=== PATIENT | male | born 1970 | race Caucasian/White ===

== ENCOUNTER → 2017-01-27 | Outpatient (CLI) | payer BC, OTHER ==
[~2017-01-27] MED LIST: FLUT0.0529 NAE; GABA300C19 PO; GLUCPOW41 PO; HYDR-3983 PO; IBUP-1105 PO; IMT100 PO; LPT/20 PO; MISCCAP80 PO; NXM/40 PO; POLY335019 PO; TERA1CAP PO; VERA240C2 PO
--- NOTE | 2017-01-27 14:42 | DIAGNOSTIC IMAGING REPORT ---
BILATERAL KNEE RADIOGRAPHS CLINICAL HISTORY: Bilateral knee pain. COMPARISON: Knee radiographs June 15, 2015. FINDINGS: Right knee: Alignment of the right knee is anatomic. There is spurring of the patella at the insertion of the quadriceps. No fracture or suspicious lesion is identified. There is mild osteophytosis of the right knee. Joint spaces are preserved with exception of minimal narrowing within the lateral aspect of the patellofemoral compartment. Left knee: Mild lateral patellar tilt is noted with moderate narrowing of the lateral aspect of the patellofemoral compartment. Medial and lateral compartment joint spaces are preserved. There is no acute fracture or suspicious lesion. There is osteophytosis within the lateral compartment. IMPRESSION: Right knee: Mild arthritis of the right knee. No fracture. Left knee: Moderate patellofemoral compartment arthritis and mild lateral compartment arthritis. Electronically signed by: Phu Long M.D. 01/27/2017 2:40 PM Dictated Date/Time: 01/27/2017 2:37 PM
== END | disposition home or self-care (01) ==
LOC: C.RDSM 14:30
PROVIDERS: ATTEND Physical Medicine & Rehabilitation Sports Medicine
DX: M17.12 Unilateral primary osteoarthritis, left knee (principal); M25.561 Pain in right knee

== ENCOUNTER 2022-04-06 06:36 | Observation (INO) ==
--- NOTE | 2022-03-28 11:47 | PAT Medication Instructions ---
Medication Instructions Date of Service March 28, 2022 Home Medications Fish Oil, Flax Oil And Borag 800 mg PO QAM [facility] 1 tab PO QAM aluminum chloride 20 % topical solution (Drysol) 1 applic TOPICAL UD PRN mdxrpyu-hzbytnfgycguu-vlxroerz 250 mg-250 mg-65 mg tablet (Excedrin Migraine) 3 tab PO UD PRN atorvastatin 20 mg tablet 20 mg PO HS esomeprazole magnesium 40 mg capsule,delayed release 40 mg PO HS gabapentin 600 mg tablet 600 - 1,200 mg PO UD glucosamine sulfate 500 mg tablet (Glucosamine) 1,500 mg PO QAM hydrocodone 7.5 mg-acetaminophen 325 mg tablet 1 tab PO UD PRN lisinopril 20 mg tablet 20 mg PO HS meloxicam 7.5 mg tablet 7.5 mg PO HS multivitamin 1 cap PO QAM sildenafil 25 mg tablet (Viagra) 50 mg PO UD PRN sumatriptan succinate 100 mg tablet 100 mg PO UD PRN terazosin 1 mg capsule 1 mg PO HS turmeric 400 mg capsule 500 mg PO QAM ubrogepant 50 mg tablet (Ubrelvy) 50 mg PO UD PRN zolpidem 10 mg tablet 10 mg PO HS PRN Continue as directed gabapentin 600 mg tablet 600 - 1,200 mg PO UD ASK your surgeon for instructions ygjozxe-enuihadfiyyxw-znhtlprx 250 mg-250 mg-65 mg tablet (Excedrin Migraine) 3 tab PO UD PRN meloxicam 7.5 mg tablet 7.5 mg PO HS STOP taking 2 weeks before surgery Fish Oil, Flax Oil And Borag 800 mg PO QAM [facility] 1 tab PO QAM glucosamine sulfate 500 mg tablet (Glucosamine) 1,500 mg PO QAM turmeric 400 mg capsule 500 mg PO QAM STOP taking 24 hours before surgery aluminum chloride 20 % topical solution (Drysol) 1 applic TOPICAL UD PRN sildenafil 25 mg tablet (Viagra) 50 mg PO UD PRN DO NOT take the morning of surgery multivitamin 1 cap PO QAM Take morning of surgery With a small sip of water, OTHERWISE NOTHING TO EAT OR DRINK AFTER MIDNIGHT: hydrocodone 7.5 mg-acetaminophen 325 mg tablet 1 tab PO UD PRN(okay to take up to 4 hours prior to surgery if needed) sumatriptan succinate 100 mg tablet 100 mg PO UD PRN(if needed) ubrogepant 50 mg tablet (Ubrelvy) 50 mg PO UD PRN(if needed) Take evening before surgery atorvastatin 20 mg tablet 20 mg PO HS esomeprazole magnesium 40 mg capsule,delayed release 40 mg PO HS lisinopril 20 mg tablet 20 mg PO HS terazosin 1 mg capsule 1 mg PO HS zolpidem 10 mg tablet 10 mg PO HS PRN(if needed) Other Notes If you have any questions please call us at [phone] or [phone] or [phone] or [phone]
--- NOTE | 2022-03-29 15:25 | Anesthesiology Consultation ---
Date of Service March 29, 2022 Assessment & Plan (1) Encounter for pre-operative examination: COVID screening: Per assessment on 03/29: No known COVID-19 positive contacts or current COVID-19 related symptoms. Travel screen negative. Surgeon arranging preop COVID testing (JENNA Sandoval). Awaiting results. Chart Review Chart Review: Acceptable Risk for Surgery and Patient seen in Pre Admission Testing Teaching & Discussion Pre-Anesthesia Teaching/Discussion Notes: Instructed NPO after midnight before surgery,except medications with 15 cc of water. Medication instructions pro vided according to the PAT guidelines. History Surgery Operation Date: 04/06/22 08:40 Proposed Procedures p Left Total Knee Arthroplasty - Nikita Menendez MD Height/Weight Height: 6 ft Weight: 109.1 kg Allergies Allergy/AdvReac Type Severity Reaction Status Date / Time morphine AdvReac Unknown N/V Verified 03/29/22 13:26 Medications Home Medications Medication Instructions Recorded Confirmed Last Taken Fish Oil, Flax Oil And Borag 800 mg PO QAM 03/28/22 03/28/22 Unknown [place] 1 tab PO QAM 03/28/22 03/28/22 Unknown aluminum chloride 20 % topical 1 applic TOPICAL UD PRN 03/28/22 03/28/22 Unknown solution (Drysol) rxoqxeh-qyblqtimgydnd-gdomgrfz 250 3 tab PO UD PRN 03/28/22 03/28/22 Unknown mg-250 mg-65 mg tablet (Excedrin Migraine) atorvastatin 20 mg tablet 20 mg PO HS 03/28/22 03/28/22 Unknown esomeprazole magnesium 40 mg 40 mg PO HS 03/28/22 03/28/22 Unknown capsule,delayed release gabapentin 600 mg tablet 600 - 1,200 mg PO UD 03/28/22 03/28/22 Unknown glucosamine sulfate 500 mg tablet 1,500 mg PO QAM 03/28/22 03/28/22 Unknown (Glucosamine) hydrocodone 7.5 mg-acetaminophen 1 tab PO UD PRN 03/28/22 03/28/22 Unknown 325 mg tablet lisinopril 20 mg tablet 20 mg PO HS 03/28/22 03/28/22 Unknown meloxicam 7.5 mg tablet 7.5 mg PO HS 03/28/22 03/28/22 Unknown multivitamin 1 cap PO QAM 03/28/22 03/28/22 Unknown sildenafil 25 mg tablet (Viagra) 50 mg PO UD PRN 03/28/22 03/28/22 Unknown sumatriptan succinate 100 mg tablet 100 mg PO UD PRN 03/28/22 03/28/22 Unknown terazosin 1 mg capsule 1 mg PO HS 03/28/22 03/28/22 Unknown turmeric 400 mg capsule 500 mg PO QAM 03/28/22 03/28/22 Unknown ubrogepant 50 mg tablet (Ubrelvy) 50 mg PO UD PRN 03/28/22 03/28/22 Unknown zolpidem 10 mg tablet 10 mg PO HS PRN 03/28/22 03/28/22 Unknown Past Medical History Medical History Borderline high blood pressure Borderline high cholesterol Excessive sweating Armpit region History of COVID-19 03/2021 Migraines Chronic (typically 6 days/week) Obesity Exercise / Class Metabolic Activity II 4-5 Yardwork/Stairs/Walk up hill Past Surgical History Surgical History History of arthroscopy of left knee History of arthroscopy of right knee History of colonoscopy History of shoulder surgery left x3, right x2 History of shoulder surgery right for torn bicep tendon Past Anesthesia History No Hx of Anesthesia Complications (except PONV) and No Family Hx of Anesthesia Complications History of PONV No Hx of Motion Sickness and History of PONV Social History Smoking Status: Never smoker Do You Dip or Chew Tobacco: No (HX 7-8 YR AGO, NONE CURRENT) Hx Alcohol Use: Yes Alcohol type: beer alcohol intake frequency: other (6-10 beers/weekend) Hx Substance Use: No Review of Systems Patient denies chest pain, shortness of breath, dyspnea on exertion, fever, chills, cough, wheezing, palpitations. Physical Exam Vital Signs VITALS BP 156/95 (BP 120s/70s when checked last week) P 75 TEMP 98.2 SP02 96%RA RESP 16 PHYSICAL Full cervical extension range of motion. Full TMJ range of motion. TMD 3 finger breaths Mallampati Score 3 Dentition: intact Lungs: clear throughout to auscultation Cardiac: regular rate and rhythm, no murmurs noted Spine: normal Carotid arteries: negative bruit Extremities: no edema Lab Results Anesthesia Preop Results Results Anesthesia Widget: WBC 6.32 K/uL (4.8-10.8) 03/29/22 Hgb 14.5 g/dL (14.0-18.0) 03/29/22 Hct 42.9 % (42-52) 03/29/22 Plt 264 K/uL (130-400) 03/29/22 Na 139 mmol/L (136-145) 03/29/22 K 4.0 mmol/L (3.5-5.1) 03/29/22 Cl 103 mmol/L (98-107) 03/29/22 CO2 31 mmol/L (21-32) 03/29/22 BUN 14 mg/dl (6-23) 03/29/22 Creat 0.85 mg/dl (0.6-1.4) 03/29/22 Glucose Level 96 mg/dl (70-99(Fasting)) 03/29/22 PT 10.3 Seconds (9.0-12.0) 03/29/22 PTT 28.2 Seconds (21.0-31.0) 03/29/22 INR 1.0 (0.9-1.1) 03/29/22 Urine Color Yellow 03/29/22 Urine Appearance Clear (Clear) 03/29/22 Urine pH 6.5 (4.5-7.5) 03/29/22 Urine Specific [place] 1.019 (1.000-1.030) 03/29/22 Urine Protein Negative (Negative) 03/29/22 Urine Glucose (UA) Negative (Negative) 03/29/22 Urine Ketones Negative (Negative) 03/29/22 Urine Blood Negative (Negative) 03/29/22 Urine Nitrite Negative (Negative) 03/29/22 Urine Bilirubin Negative (Negative) 03/29/22 Urine Urobilinogen Negative (Negative) 03/29/22 Urine Leukocyte Esterase Negative (Negative) 03/29/22 Blood Type O Positive 03/29/22 Antibody Screen NEGATIVE 03/29/22 Testing Electrocardiogram Date: 03/29/22 NSR at 73bpm. unconfirmed report. Chest X-Ray Date: 03/29/22 FINDINGS: No lines and tubes are seen. The cardiomediastinal silhouette is normal. The lungs are clear. No evidence of pleural effusion or pneumothorax. Incidental note is made of tendon anchors in the left shoulder IMPRESSION: No acute chest disease.
--- NOTE | 2022-04-04 16:21 | History & Physical Report ---
Date of Service April 04, 2022 Assessment & Plan (1) Left knee DJD: Plan: Postoperative prescriptions for Percocet and Coumadin will be provided at discharge from the hospital. Anticipate discharge to home with home health services. Postop followup appointment has been made with me for 04/21 at 1:30 p.m. for staple removal. The PDMP was checked and there are no concerning findings. The patient is aware of the COVID-19 risks associated with surgery. He is currently asymptomatic of any COVID-19 symptoms. He will obtain nasal swab testing 2 days prior to surgery. The patient was sent to [facility] for preoperative lab work, EKG, and chest x-ray. He has already seen his PCP for medical clearance. He already has access to a cane. Prescription was provided for a rolling walker. History of Present Illness Chief Complaint: Left knee pain Primary Care Provider: Edilia Pineda MD This 52-year-old male presents for his preoperative history and physical. He is scheduled to undergo a left knee total knee arthroplasty on 04/06/2022. The patient has had bilateral knee pain, left greater than right, since 2020. He last received viscosupplementation injections in both knees in 09/2020. They helped for a few months, but did not provide the relief he was hoping for. He has been having increasing difficulty with his knees. The pain is worse with weightbearing. He is curtailing his activity based on his knee pain. He is having difficulty with ADLs. He is not exercising because the knees hurt. He notes he has had weight gain because of his inactivity. He denies any numbness or tingling. He elects to proceed with surgical intervention in the hopes of improving his mobility and comfort. Preoperative imaging has been obtained. Allergies Allergy/AdvReac Type Severity Reaction Status Date / Time morphine AdvReac Unknown N/V Verified 03/29/22 13:26 Home Medications Medication Instructions Recorded Confirmed Type Fish Oil, Flax Oil And Borag 800 mg PO QAM 03/28/22 03/28/22 History [place] 1 tab PO QAM 03/28/22 03/28/22 History aluminum chloride 20 % topical 1 applic TOPICAL UD PRN 03/28/22 03/28/22 History solution (Drysol) xqbkahs-spmerekjzkxqx-heaasadw 250 3 tab PO UD PRN 03/28/22 03/28/22 History mg-250 mg-65 mg tablet (Excedrin Migraine) atorvastatin 20 mg tablet 20 mg PO HS 03/28/22 03/28/22 History esomeprazole magnesium 40 mg 40 mg PO HS 03/28/22 03/28/22 History capsule,delayed release gabapentin 600 mg tablet 600 - 1,200 mg PO UD 03/28/22 03/28/22 History glucosamine sulfate 500 mg tablet 1,500 mg PO QAM 03/28/22 03/28/22 History (Glucosamine) hydrocodone 7.5 mg-acetaminophen 1 tab PO UD PRN 03/28/22 03/28/22 History 325 mg tablet lisinopril 20 mg tablet 20 mg PO HS 03/28/22 03/28/22 History meloxicam 7.5 mg tablet 7.5 mg PO HS 03/28/22 03/28/22 History multivitamin 1 cap PO QAM 03/28/22 03/28/22 History sildenafil 25 mg tablet (Viagra) 50 mg PO UD PRN 03/28/22 03/28/22 History sumatriptan succinate 100 mg tablet 100 mg PO UD PRN 03/28/22 03/28/22 History terazosin 1 mg capsule 1 mg PO HS 03/28/22 03/28/22 History turmeric 400 mg capsule 500 mg PO QA 03/28/22 03/28/22 History ubrogepant 50 mg tablet (Ubrelvy) 50 mg PO UD PRN 03/28/22 03/28/22 History zolpidem 10 mg tablet 10 mg PO HS PRN 03/28/22 03/28/22 History Past Med/Surg History Medical History (Updated 04/04/22 @ 16:20 by Chaitanya Mcintyre PA-C) Borderline high blood pressure Borderline high cholesterol BPH (benign prostatic hyperplasia) Excessive sweating Armpit region History of COVID-19 03/2021 Migraines Chronic (typically 6 days/week) Obesity Surgical History History of arthroscopy of left knee History of arthroscopy of right knee History of colonoscopy History of shoulder surgery left x3, right x2 History of shoulder surgery right for torn bicep tendon Family History (Updated 04/04/22 @ 16:18 by Chaitanya Mcintyre PA-C) Other Heart disease Stroke Social History (Updated 04/04/22 @ 16:18 by Chaitanya Mcintyre PA-C) Smoking Status: Never smoker Hx Alcohol Use: Yes Alcohol type: beer Hx Substance Use: No Preferred Language: Georgian Communication Ability: Effective Hearing Ability: Normal 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 Physical Exam Physical Exam: Vitals: Height 182 cm, weight 110 kilograms, BMI 33.2. Temperature 36.5, BP 140/82, heart rate 93, O2 sat 97% on room air. General: Well-developed, well-nourished middle-aged white male in no acute distress sitting in a chair. Alert and oriented. Skin: Warm and dry with good turgor. No rashes. No ecchymosis or edema. Mild intra-articular effusion in the left knee. HEENT: Normocephalic, atraumatic. Eyes: PERRLA, EOMI. Nares patent bilaterally without turbinate enlargement. Oropharynx not examined due to COVID precautions. Heart: RRR. No MGR. Lungs: Clear to auscultation bilaterally. No crackles, rhonchi or wheezing. Good air movement. Abdomen: Mildly obese. Bowel sounds present x4. Soft, nontender. No organomegaly. No masses. Musculoskeletal: Left knee evaluation reveals a mild intra-articular effusion as stated. There is no warmth or redness. He has no obvious deformity. He has full terminal extension. Flexion to greater than 100 degrees. Strength is 5/5 with good quad tone. There is no defect in the patellar tendon or quadriceps tendon. He has focal joint line discomfort with palpation over the medial joint line. No significant lateral joint line discomfort with palpation. There is palpable crepitus in the left knee with motion. Stable cruciate and collateral ligaments. Ambulates with a slightly antalgic gait. Neurologic: Gross sensation is intact across both lower extremities by soft touch. Peripheral pulses are 2+. Results & Data Results & Data ([facility]) Diagnostic Findings Radiographic imaging obtained previously shows osteoarthritic changes of the medial and patellofemoral compartment of the left knee. Periarticular osteophytes, subchondral sclerosis, and joint space narrowing are all present. Code Status & VTE Plan VTE Prophylaxis Plan VTE Prophylaxis will be ordered: Yes
--- NOTE | 2022-04-06 05:27 | History & Physical Bridge Note ---
Date of Service April 06, 2022 History & Physical Bridge Note I have examined the patient, reviewed the History & Physical and in the interval since the performance of the History & Physical I have noted the following changes of clinical significance:consent obtained/site verified/covid screen negative. no changes noted
[~2022-04-06 06:36] MED LIST changes: +BUPIVACAINE 0.5 % 5 MG/1 ML PF 10ML VIAL ONE; -FLUT0.0529 NAE; -GABA300C19 PO; -GLUCPOW41 PO; -HYDR-3983 PO; -IBUP-1105 PO; -IMT100 PO; -LPT/20 PO; +LR 500ML BOLUS, THEN 15ML/HR IV SCH; +LR 60ML/HR IV SCH; -MISCCAP80 PO; -NXM/40 PO; -POLY335019 PO; +ROPIVACAINE 0.5% 5 MG/ML 30 ML VIAL ONE; +ROPIVACAINE 0.5% HCL/PF 150 MG, BUPIVACAINE 0.75% MPF 20 ML, EPINEPHrine 0.15 MG, Ketor... INFIL SCH; -TERA1CAP PO; +TRANEXAMIC ACID 1,000 MG **IV Pre-op IV SCH; -VERA240C2 PO; +ceFAZolin 2000MG 2,000 MG/15 ML SYR IV SCH
[2022-04-06] MEDS ORDERED: PROPOFOL IV EMULSION 10 MG/ML 20 ML VIAL IV ONE ×3 (07:43→09:58)
[2022-04-06] MEDS ORDERED: MIDAZOLAM HCL 1 MG/ML 2ML VIAL ONE ×2 (07:44→09:28)
[2022-04-06] MEDS ORDERED: fentaNYL citrate 100 MCG/2 ML VIAL ONE (07:44)
[2022-04-06] MEDS ORDERED: ONDANSETRON INJ 2 MG/ML 2 ML VIAL IV PRN ×2 (08:23→12:23)
[2022-04-06] MEDS ORDERED: ePHEDrine sulfate 50 MG/ML AMP IV PRN (08:23)
[2022-04-06] MEDS ORDERED: KETOROLAC 30 MG/ML VIAL IV PRN (08:23)
[2022-04-06] MEDS ORDERED: ATROPINE SULFATE 0.1 MG/ML 10ML SYR IV PRN (08:23)
[2022-04-06] MEDS ORDERED: ORTHO JOINT ANESTHETIC ONE (09:06)
[2022-04-06] MEDS ORDERED: KETAMINE 50 MG/5 ML SYRINGE ONE (09:32)
[2022-04-06] MEDS ORDERED: METOCLOPRAMIDE HCL INJ 5 MG/ML 2 ML VIAL ONE (09:58)
[2022-04-06] MEDS ORDERED: ONDANSETRON INJ 2 MG/ML 2 ML VIAL ONE (09:58)
[2022-04-06] MEDS ORDERED: GLYCOPYRROLATE 0.2 MG/ML VIAL ONE (10:49)
--- NOTE | 2022-04-06 10:59 | Post Operative Brief Note ---
Immediate Post Op Note v1 Date of Surgery April 06, 2022 Pre & Post Diagnosis Operation Date: 04/06/22 08:50 Pre-Op Diagnosis: Left Knee Degenerative Joint Disease Post-Op Diagnosis: Left Knee Degenerative Joint Disease I identified the patient and participated in the time-out.: Yes Procedure Operation Date: 04/06/22 08:50 Actual Procedures p Left Total Knee Arthroplasty(Left) - Nikita Menendez MD Surgeon Nikita Menendez MD Lock Up Worker Francisco Javier/Emiliano Estimated Blood Loss 75 Findings Consistent with Post-Op Diagnosis
--- NOTE | 2022-04-06 11:08 | Operative Report ---
Post Operative Report Pre & Post Diagnosis Operation Date: 04/06/22 08:50 Pre-Op Diagnosis: Left Knee Degenerative Joint Disease Post-Op Diagnosis: Left Knee Degenerative Joint Disease I identified the patient and participated in the time-out.: Yes Procedure Operation Date: 04/06/22 08:50 Actual Procedures p Left Total Knee Arthroplasty(Left) - Nikita Menendez MD Surgeon SUE Menendez MD Visual Basic Programmer Francisco Javier/Emiliano Estimated Blood Loss 75 Findings Consistent with Post-Op Diagnosis see operative report Specimens see operative report Drains none Complications none Disposition Accompanied Patient To Recovery: Yes Indications This 52 year old male presented to the office with complaints of persisting right knee pain. He had tried conservative care measures including viscosu pplementation, activity modification, and home exercise program. He elected to proceed with surgical intervention after being educated about potential risks and outcomes. Preoperative imaging was obtained. Description of Procedure Patient was administered a spinal anesthetic and then taken to the operating room where he was given sedation. He was prepped and draped in the usual sterile fashion. Please see Dr. Menendez's operative report for specifics of the procedure. I was present for the entire case from initial patient positioning through final wound closure. Assistance was provided in tissue retraction, hemostasis, trial implant placement, final implant placement, and final wound closure. Patient was taken to the recovery room in satisfactory condition. I attest to the content of the Intraoperative Record and any orders documented therein. Any exceptions are noted below.
--- NOTE | 2022-04-06 11:15 | Operative Report (OR) ---
DATE OF PROCEDURE: 04/06/2022 SURGEON: Nikita Menendez MD. TIRE MECHANIC: Chaitanya Mcintyre PA-C. SECOND TIRE MECHANIC: Mc, medical student. No resident or fellow available. PREOPERATIVE DIAGNOSIS: Osteoarthritis, left knee. POSTOPERATIVE DIAGNOSIS: Osteoarthritis, left knee. OPERATION PERFORMED: Cemented left total knee replacement. PERIOPERATIVE SITUATION: Medically cleared male who has been followed for over a decade with bilater al knee pain. At this point in time, left is worse than right. Physical exam and x-ray revealed end -stage patellofemoral disease with high probability of tibiofemoral compartment changes with medial j oint space narrowing in particular. Options were discussed with him in detail. He wished to proceed with surgical treatment to include t otal knee replacement as he has significant discomfort. DESCRIPTION OF PROCEDURE: The patient was appropriately identified, site verified, consent verified. Antibiotics confirmed as being given. The left lower extremity was prepped and draped in usual rou emilia fashion. Tourniquet was inflated to 300 mmHg after exsanguination of limb with a rubber Esmarch bandage for a total of 50 minutes. Midline incision performed. Parapatellar arthrotomy completed. There was extensive synovitis. Ther e was marked osteophyte formation along the entire patellofemoral joint, the medial tibiofemoral join t, not as extensively along the lateral tibiofemoral joint. There was grade IV pack changer the entir e trochlea, grade IV pack changer the entire medial facet of the patella. Synovectomy was completed. Once the knee was flexed, there was a quarter-sized full thickness grade IV lesion of the weightbear ing surface of the medial femoral condyle and a nickel-sized area on the lateral femoral condyle. Th is confirmed tricompartmental end-stage disease. Once the synovectomy releases were performed of the cruciates, the tibia was subluxated, the menisci were resected. The distal femur was then entered resecting 12 mm. The tibia was then resected 4 mm. The extension gap was excellent. Femur was sized between a 5 and a 4, was measured 5, cut 4. No n otching occurred. The flexion gap was checked, it was excellent. The posterior capsule was injected . A box cut was then made and a size 4 fit well. The tibia was subluxated, we broached and reamed to a size 4 with a 10 spacer. The knee was stable i n mid range and full flexion and full extension. There was excellent tracking of the patella. The patella was resected leaving roughly 15 mm. Seating holes made, and the trial tracked well. Exc ess overhang resected from the lateral aspect. Orthomix was then injected all about the knee. All the trial elements were then removed. The wound irrigated with Betadine Pulsavac, and then the permanent cemented in position using tibia, femur, and patella in that sequence. At 12 minutes, the tourniquet deflated. Minor bleeding points were contr olled with electrocautery. At 14 minutes, the knee was flexed. No cement removal was required. The wound was irrigated one final time with Pulsavac and Betadine, and then the permanent liner seated. The knee reduced and closed at 40 degrees of flexion using #2 Vicryl, 2-0 Vicryl and stainless steel clips. Appropriate dressing applied. The patient was transferred to the recovery room in satisfact ory condition, having tolerated the procedure well. SUMMARY IMPLANTS: Size 4 posterior cruciate substituting femur, size 4 mobile bearing tray, size 41 patella, size 4 x 10 mm posterior cruciate substituting insert, 2 bags of [place] G cement, DePuy J a nd J rotating platform knee replacement. DVT prophylaxis per protocol. Pathology pending on bone. Job ID: [id number]
--- NOTE | 2022-04-06 11:23 | Discharge Summary (DS) ---
DATE OF ADMISSION: 04/06/2022 DATE OF POTENTIAL DISCHARGE: 04/07/2022 CHIEF COMPLAINT: Left knee pain. HISTORY OF PRESENT ILLNESS: The patient underwent elective left total knee replacement. [facility]. He is 52 years old. He was noted to have tricompartmental diseas e. ALLERGIES: MORPHINE - NAUSEA, VOMITING. HOME MEDICATIONS: Include multiple supplements. Medications include zolpidem, ubrogepant, turmeric, terazosin, sumatriptan, sildenafil, meloxicam, lisinopril, hydrocodone, glucosamine, gabapentin, ome prazole, atorvastatin, Excedrin, and aluminum chloride topical solution. PAST MEDICAL HISTORY: Remarkable for borderline hypertension, borderline cholesterolemia, BPH, histo ry of COVID-19 in 03/2021, migraines, obesity. PAST SURGICAL HISTORY: Remarkable for multiple knee arthroscopies, colonoscopy, shoulder surgery. FAMILY HISTORY: Remarkable for heart disease and stroke. SOCIAL HISTORY: Reveals he does not smoke. Social alcohol only. He is employed. He feels safe at home. Wears glasses. He is single. REVIEW OF SYSTEMS: Noncontributory. ASSESSMENT: Doing well status post left total knee replacement. PLAN: Continue with care pathway. Discharge tomorrow if he does well overnight. Job ID: [id number]
--- NOTE | 2022-04-06 11:24 | Progress Notes ---
DATE OF SERVICE: 04/06/2022 SUBJECTIVE: Postop check status post left total knee replacement. The patient is doing well. Denie s any chest pain, shortness of breath, fever, chills, nausea, vomiting or headache. OBJECTIVE: VITAL SIGNS: Stable. He is afebrile. Neurovascular check is limited by spinal. Postop x-rays look excellent. ASSESSMENT: Doing well. Continue care pathway. Hopefully, discharge home tomorrow. Job ID: [id number]
--- NOTE | 2022-04-06 11:37 | XRay Report ---
XR knee LT 1 or 2V routine CLINICAL HISTORY: Status post left knee arthroplasty. COMPARISON: Knee radiograph February 18, 2022. FINDINGS: Alignment of the total left knee arthroplasty is anatomic. There is no periprosthetic frac ture or unexpected radiopaque foreign body. There are skin ephraim. IMPRESSION: Expected findings following total left knee arthroplasty. ACT 112: Negative or not required by law. Electronically signed by: Phu Long M.D. 04/06/2022 11:36 AM
[2022-04-06] MEDS: HYDROmorphone INJ 1 MG/ML SYRINGE IV PRN ×4 (11:39→11:54)
[2022-04-06] MEDS ORDERED: MAGNESIUM HYDROXIDE SUSP 30 ML UDC PO PRN (12:23)
[2022-04-06] MEDS ORDERED: diphenhydrAMINE 50 MG/ML VIAL IV PRN (12:23)
[2022-04-06] MEDS ORDERED: HYDROmorphone INJ 0.5 MG/0.5 ML SYR IV PRN (12:23)
[2022-04-06] MEDS ORDERED: SUMAtriptan succinate 100 MG TAB PO PRN (12:23)
[2022-04-06] MEDS ORDERED: SODIUM CHLORIDE 0.9% 1000ML 1,000 ML IV SCH (12:23)
[2022-04-06] MEDS ORDERED: METOCLOPRAMIDE HCL INJ 5 MG/ML 2 ML VIAL IV PRN (12:23)
[2022-04-06] MEDS ORDERED: NALOXONE HCL 0.4 MG/1 ML VIAL/CARP IV PRN (12:23)
[2022-04-06] MEDS ORDERED: bisacodyL 10 MG SUPP PR PRN (12:23)
[2022-04-06] MEDS ORDERED: TAMSULOSIN HCL 0.4 MG CAP PO PRN (12:23)
[2022-04-06] MEDS ORDERED: ALUMINUM/MAGNESIUM SUSP 30 ML UDC PO PRN (12:23)
[2022-04-06] MEDS ORDERED: ALUMINUM CHLORIDE TOP PRN (12:23)
--- NOTE | 2022-04-06 12:52 | Anesthesiology Progress Note ---
Date of Service April 06, 2022 Anesthesia Post Procedure Vital Signs Vital Signs: Temp Pulse Resp BP BP Pulse Ox 04/06/22 12:45 16 112/82 95 04/06/22 12:30 13 116/68 93 04/06/22 12:15 36.1 C L 15 113/71 93 04/06/22 12:05 16 133/68 98 04/06/22 11:55 21 108/75 95 04/06/22 11:45 18 120/78 97 04/06/22 11:35 12 117/77 96 04/06/22 11:25 24 133/98 93 04/06/22 11:15 13 127/71 92 04/06/22 11:07 36.0 C L 11 L 133/75 97 04/06/22 07:22 36.6 C 87 18 162/101 H 94 Pain Intensity Back: Pain Intensity: 1 Transfer of Care Handoff Completed per policy Notes Mental Status: alert / awake / arousable Patient Amnestic to Procedure: Yes Nausea / Vomiting: adequately controlled Pain: adequately controlled Airway Patency, RR, SpO2: stable & adequate BP & HR: stable & adequate Hydration State: stable & adequate Neuraxial Anesthesia: was administered and sensory block is resolving Anesthetic Complications: no major complications apparent and Pt Satisfied with anesthetic care
[2022-04-06] MEDS: KETOROLAC 30 MG/ML VIAL IV SCH ×3 (14:09→23:14)
[2022-04-06] MEDS: ACETAMINOPHEN 500 MG TAB PO SCH ×2 (14:15→21:08)
[2022-04-06] MEDS: ORTHO WARFARIN NOMOGRAM SCH (15:14)
[2022-04-06] MEDS: oxyCODONE HCL IR 5 MG TAB (IMMEDIATE RELEASE) PO PRN ×2 (15:32→21:38)
[2022-04-06] MEDS ORDERED: WARFARIN SOD 5 MG TAB PO ONE (16:00)
--- NOTE | 2022-04-06 16:54 | Progress Notes ---
DATE OF SERVICE: 04/06/2022 Postop check status post left total knee replacement. The patient is able to lift his leg, pump his ankle, plantar flexion, dorsiflexion. Voiding, eating and drinking. At this point, we will discontin ue IV fluid. Mobilize. Follow up in the a.m., discharge then. Job ID: [id number]
[2022-04-06] MEDS ORDERED: TRANEXAMIC ACID / 0.7% NACL 1,000 MG/100 ML BAG IV SCH (17:15)
[2022-04-06] MEDS: FERROUS GLUCONATE 324 MG TAB PO SCH (17:27)
[2022-04-06] MEDS: ASCORBIC ACID 500 MG TAB PO SCH (17:28)
[2022-04-06] MEDS: ceFAZolin 2000MG 2,000 MG/15 ML SYR IV SCH (17:34)
[2022-04-06] MEDS ORDERED: SENNA 8.6 MG TAB PO SCH (21:00)
[2022-04-06] MEDS ORDERED: ATORVASTATIN 20 MG TAB PO SCH (21:00)
[2022-04-06] MEDS ORDERED: lisinopril 20 MG TAB PO SCH (21:00)
[2022-04-06] MEDS ORDERED: PANTOprazole 40 MG TAB PO SCH (21:00)
[2022-04-06] MEDS ORDERED: TERAZOSIN HCL 1 MG CAP PO SCH (21:00)
[2022-04-06] MEDS: DOCUSATE SODIUM 100 MG CAP PO SCH (21:08)
[2022-04-07] MEDS: ceFAZolin 2000MG 2,000 MG/15 ML SYR IV SCH (01:46)
[2022-04-07] MEDS: oxyCODONE HCL IR 5 MG TAB (IMMEDIATE RELEASE) PO PRN ×3 (01:49→10:40)
[2022-04-07] MEDS: ACETAMINOPHEN 500 MG TAB PO SCH (06:11)
[2022-04-07] MEDS: KETOROLAC 30 MG/ML VIAL IV SCH (06:11)
--- NOTE | 2022-04-07 06:41 | Progress Notes ---
SUBJECTIVE: Postop check status post left total knee replacement. The patient is doing well. He is up and dressed. He is controlling his pain with oral medication. Advised him not to prop things behind his knee. To keep him comfortable, needs to get the knee to ex tend. He states he understands. OBJECTIVE: Vital signs are stable. He is afebrile. Neurovascular check femoral sciatic nerve is normal. Wound dressing clean, dry, and intact. Calves nontender. LABORATORY DATA: A.m. labs are pending. ASSESSMENT AND PLAN: Doing well. Discharged to home today after PT/OT. Coumadin dose per nomogram. Discharged on 4 mg. Job ID: [id number]
[2022-04-07] MEDS: DOCUSATE SODIUM 100 MG CAP PO SCH (07:40)
[2022-04-07] MEDS: ASCORBIC ACID 500 MG TAB PO SCH (07:40)
[2022-04-07] MEDS: FERROUS GLUCONATE 324 MG TAB PO SCH (07:41)
[2022-04-07] MEDS ORDERED: dexAMETHasone 10 MG in SYRINGE 0 ML IV SCH (08:00)
[2022-04-07 08:37] LABS: BUN Creatinine Ratio 19.1 (10-20); Calcium 9.4 mg/dl (8.5-10.1); Creatinine Clr Calc Pharmacy 120.9 ml/min; Est GFR (African American) 113.1 ml/min; Est GFR (Non-African American) 97.6 ml/min; Potassium 4.5 mmol/L (3.5-5.1)
[2022-04-07 08:40] LABS: Hematocrit (blood only) 38.6 % (42-52); Hemoglobin 13.2 g/dL (14.0-18.0); Mean Corpuscular Hemoglobin 30.6 pg (25-34); Mean Corpuscular Hgb Conc 34.2 g/dL (32-36); Mean Corpuscular Volume 89.4 fL (80-100); Mean Platelet Volume 9.4 fL (7.4-10.4); Platelet Count 211 K/uL (130-400); RDW Coefficient of Variation 12.5 % (11.5-14.5); Red Blood Count 4.32 M/uL (4.7-6.1); White Blood Count 13.93 K/uL (4.8-10.8)
[2022-04-07] MEDS ORDERED: MULTIVITAMIN TAB PO SCH (09:00)
[2022-04-07] MEDS ORDERED: GABAPENTIN 600 MG TAB PO SCH (09:00)
[2022-04-07] MEDS: ORTHO WARFARIN NOMOGRAM SCH (09:07)
--- NOTE | 2022-04-07 09:24 | Orthopedic Progress Note ---
Date of Service April 07, 2022 Assessment & Plan (1) S/P total knee replacement using cement: Plan: Patient's dressing was changed today. Compression stockings were applied. He will wear the knee immobilizer today and tomorrow, and discontinue its use on Monday. Coumadin 4 mg today. He will take 4 mg daily through the weekend and have his blood rechecked on Monday. Leave the dressing in place through the weekend. It may be changed on Monday if there is soiling. Written discharge instructions were provided. Prescriptions for Coumadin and Percocet were sent to his pharmacy. Follow-up in the office in 2 weeks as scheduled for staple removal. Use the walker when standing/ambulating. Home health has been established. Prescriptions have been provided. Admission and Anticipated Discharge Date Admission Date: April 06, 2022 Subjective Patient is seen in his room this morning. He has no current complaints. States he did not sleep well. His pain is adequately controlled. He has been out of bed and has gone to the bathroom using his walker. He feels ready for discharge to home. No other complaints. He denies any chest pain, shortness of breath, abdominal pain, nausea, vomiting, numbness, or tingling. Review of Systems Review of Systems: unchanged from yesterday Physical Exam Physical Exam: General: Well-developed, well-nourished, middle-aged white male, in no acute distress. Sitting in bed. Alert and oriented. Conversive. Skin: Warm and dry with good turgor. Expected postoperative ecchymosis and edema at his left knee. [place] are intact. Wound edges are well approximated. No erythema or warmth. No drainage. He has scant dried blood on his inner dressings. Musculoskeletal: Patient has intact motor function to his hip, knee, and ankle. He is able to set his quad and perform a straight leg raise. He lacks a few degrees of terminal extension. Flexion to around 70 degrees. Neurologic: Gross sensation is intact across the left leg by soft touch. Peripheral pulses are 2+. Results & Data ([facility]) Vital Signs (Past 12 Hours) Vital Signs Temp Pulse Resp BP Pulse Ox 04/07/22 09:03 36.6 C 82 16 130/77 93 04/07/22 07:10 36.6 C 82 16 130/77 93 04/07/22 05:00 36.6 C 70 16 129/76 94 04/06/22 21:32 36.6 C 78 16 155/82 H 94 Laboratory Results WBCs 13.9. H&H 13.2 and 38.6. INR 1.0. PRP is unremarkable.
[2022-04-07] MEDS ORDERED: WARFARIN SOD 5 MG TAB PO SCH (10:00)
[2022-04-07] MEDS ORDERED: ORTHO WARFARIN NOMOGRAM SCH (14:00)
== END 2022-04-07 12:32 | disposition home health service (06) ==
LOC: PACUINP 06:36 → ASU 06:36 → 3E 15:45
DX: M17.12 Unilateral primary osteoarthritis, left knee

== ENCOUNTER 2025-07-09 06:30 | Observation (INO) ==
--- NOTE | 2025-06-13 09:25 | PAT Medication Instructions ---
Medication Instructions Date of Service June 13, 2025 Home Medications aluminum chloride 20 % topical solution (Drysol) 1 applic topical UD PRN [id number]-uvdgeomemsrzv-bgpgshhy 250 mg-250 mg-65 mg tablet (Excedrin Migraine) 3 tab PO UD PRN atorvastatin 20 mg tablet 20 mg PO HS esomeprazole magnesium 40 mg capsule,delayed release 40 mg PO HS multivitamin 1 cap PO QAM sildenafil 25 mg tablet (Viagra) 50 mg PO UD PRN terazosin 1 mg capsule 1 mg PO HS turmeric 400 mg capsule 500 mg PO QAM zolpidem 10 mg tablet 10 mg PO HS PRN atogepant 60 mg tablet (Qulipta) 0 mg PO QAM gabapentin 300 mg capsule 300 mg PO QID glucosamine sulfate 750 mg tablet 1,500 mg PO QAM hydrocodone 7.5 mg-acetaminophen 325 mg tablet 1 tab PO UD PRN lactobacillus combination no.4 3 billion cell capsule (Probiotic) 0 mmu cells PO QAM lisinopril 20 mg-hydrochlorothiazide 12.5 mg tablet 1 tab PO QAM ubrogepant 100 mg tablet (Ubrelvy) 100 mg PO BID PRN Continue as directed hydrocodone 7.5 mg-acetaminophen 325 mg tablet 1 tab PO UD PRN(if needed) ASK your surgeon for instructions [id number]-abtecbvpilmjp-bwhkupol 250 mg-250 mg-65 mg tablet (Excedrin Migraine) 3 tab PO UD PRN ASK your prescriber and surgeon atogepant 60 mg tablet (Qulipta) 0 mg PO QAM ubrogepant 100 mg tablet (Ubrelvy) 100 mg PO BID PRN STOP taking 2 weeks before surgery (or as soon as possible if surgery is within 2 weeks) turmeric 400 mg capsule 500 mg PO QAM glucosamine sulfate 750 mg tablet 1,500 mg PO QAM STOP taking 24 hours before surgery aluminum chloride 20 % topical solution (Drysol) 1 applic topical UD PRN sildenafil 25 mg tablet (Viagra) 50 mg PO UD PRN DO NOT take the morning of surgery multivitamin 1 cap PO QAM lactobacillus combination no.4 3 billion cell capsule (Probiotic) 0 mmu cells PO QAM lisinopril 20 mg-hydrochlorothiazide 12.5 mg tablet 1 tab PO QAM Take morning of surgery With a small sip of water, OTHERWISE NOTHING TO EAT OR DRINK AFTER MIDNIGHT: gabapentin 300 mg capsule 300 mg PO QID Take evening before surgery atorvastatin 20 mg tablet 20 mg PO HS esomeprazole magnesium 40 mg capsule,delayed release 40 mg PO HS terazosin 1 mg capsule 1 mg PO HS zolpidem 10 mg tablet 10 mg PO HS PRN(if needed) gabapentin 300 mg capsule 300 mg PO QID Other Notes If you have any questions please call us at [phone] or [phone] or [phone] or [phone]
--- NOTE | 2025-06-16 10:29 | Anesthesiology Consultation ---
Date of Service June 16, 2025 Assessment & Plan (1) Encounter for pre-operative examination: - Infectious disease screening: Per assessment on 06/16/25- No known recent infectious disease contacts or current infectious disease symptoms. - Outpatient joint assessment: Pt currently scheduled for inpatient pathway. If surgeon requests review for outpatient joint pathway, patient is an acceptable candidate for outpatient joint program from anesthesia standpoint pending surgeon's office assessment that patient is motivated, has good support and completes [facility] preop requirements. - Patient acceptable risk for surgery pending surgeon-ordered PCP preop evaluation (ALYSSIA Levy, appt 06/18). History Surgery Operation Date: 07/09/25 09:05 Proposed Procedures p Right Total Knee Arthroplasty - Nikita Menendez MD Height/Weight Height: 5 ft 11 in Weight: 111.8 kg Allergies Allergy/AdvReac Type Severity Reaction Status Date / Time morphine AdvReac Unknown N/V Verified 06/12/25 12:01 Medications Home Medications Medication Instructions Recorded Confirmed Last Taken aluminum chloride 20 % topical 1 applic topical UD PRN excessive 03/28/22 06/12/25 04/05/22 21:00 solution (Drysol) under arm sweating [id number]-izwbxqfrfospg-qdfdntxp 250 3 tab PO UD PRN Migraine Headache 03/28/22 06/12/25 04/03/22 mg-250 mg-65 mg tablet (Excedrin Migraine) esomeprazole magnesium 40 mg 40 mg PO HS 03/28/22 06/12/25 04/05/22 21:00 capsule,delayed release multivitamin 1 cap PO QAM 03/28/22 06/12/25 03/30/22 sildenafil 25 mg tablet (Viagra) 50 mg PO UD PRN Sexual Activity 03/28/22 06/12/25 Unknown terazosin 1 mg capsule 1 mg PO HS 03/28/22 06/12/25 04/05/22 21:00 turmeric 400 mg capsule 500 mg PO QAM 03/28/22 06/12/25 03/30/22 zolpidem 10 mg tablet 10 mg PO HS PRN Sleep 03/28/22 06/12/25 03/30/22 atogepant 60 mg tablet (Qulipta) 60 mg PO QAM 06/12/25 06/16/25 Unknown gabapentin 300 mg capsule 300 mg PO QID 06/12/25 06/12/25 Unknown glucosamine sulfate 750 mg tablet 1,500 mg PO QAM 06/12/25 06/12/25 Unknown hydrocodone 7.5 mg-acetaminophen 1 tab PO UD PRN migraines 06/12/25 06/12/25 Unknown 325 mg tablet lactobacillus combination no.4 3 0 mmu cells PO QAM 06/12/25 06/12/25 Unknown billion cell capsule (Probiotic) ubrogepant 100 mg tablet (Ubrelvy) 100 mg PO BID PRN migraines 06/12/25 06/12/25 Unknown fenofibrate 145 mg PO QAM 06/16/25 06/16/25 Unknown lisinopril 20 1 tab PO DAILY 06/16/25 06/16/25 Unknown mg-hydrochlorothiazide 25 mg tablet tizanidine 4 mg tablet 4 mg PO BID 06/16/25 06/16/25 Unknown Past Medical History Medical History BPH (benign prostatic hyperplasia) Cavernous malformation Hx, s/p gamma knife treatment (2015) Excessive sweating Armpit region History of COVID-19 03/2021 History of hypertension Hx of gastroesophageal reflux (GERD) Hx of hyperlipidemia Migraines Chronic (typically 6 days/week) Obesity Exercise / Class Metabolic Activity II 4-5 Yardwork/Stairs/Walk up hill (one FS: No CP, no SOB) Past Family History Family History Other Heart disease Stroke Past Surgical History Surgical History History of arthroscopy of left knee History of arthroscopy of right knee History of colonoscopy History of shoulder surgery left x3, right x2 History of shoulder surgery Right for torn bicep tendon History of total left knee replacement Hx of foot surgery left foot Status post gamma knife treatment For cavernous malformation [facility] (2015) Past Anesthesia History No Hx of Anesthesia Complications and No Family Hx of Anesthesia Complications History of PONV History of PONV (Post-op nausea with shoulder shoulder) and Hx of Motion Sickness (Occasional) Social History Smoking Status: Never smoker Do You Dip or Chew Tobacco: No (Quit 7 years ago (hx intermittent use x 5 years)) Hx Alcohol Use: Yes Alcohol type: beer, wine and hard liquor alcohol intake frequency: a few times a week Hx Substance Use: No substance use type: does not use Review of Systems Patient denies chest pain, shortness of breath, dyspnea on exertion, fever, chills, cough, wheezing, palpitations. Physical Exam Vital Signs BP 131/86 P 76 TEMP 97.8 SP02 97%RA RESP 18 Physical Full cervical extension range of motion. Full TMJ range of motion. TMD > 3.5 finger breaths Mallampati Score III Dentition: intact Lungs: clear throughout to auscultation Cardiac: regular rate and rhythm, no murmurs noted Spine: normal Carotid arteries: negative bruit Extremities: no LE edema Lab Results Anesthesia Preop Results Results Anesthesia Widget: WBC 6.09 K/ul (4.8-10.8) 06/16/25 Hgb 14.6 g/dl (14.0-18.0) 06/16/25 Hct 44.7 % (42.0-52.0) 06/16/25 Plt 266 K/uL (130-400) 06/16/25 Na 139 mmol/L (136-145) 06/16/25 K 4.0 mmol/L (3.5-5.1) 06/16/25 Cl 102 mmol/L (98-107) 06/16/25 CO2 30 mmol/L (21-32) 06/16/25 BUN 15 mg/dl (6-23) 06/16/25 Creat 1.10 mg/dl (0.6-1.4) 06/16/25 Glucose Level 100 mg/dl (70-99(Fasting)) H 06/16/25 PT 10.5 Seconds (9.0-12.0) 06/16/25 PTT 29 Seconds (21-31) 06/16/25 INR 1.0 (0.9-1.1) 06/16/25 Urine Color Yellow 06/16/25 Urine Appearance Clear (Clear) 06/16/25 Urine pH 6.0 (4.5-7.5) 06/16/25 Urine Specific [place] 1.007 (1.000-1.030) 06/16/25 Urine Protein Negative (Negative) 06/16/25 Urine Glucose (UA) Negative (Negative) 06/16/25 Urine Ketones Negative (Negative) 06/16/25 Urine Blood Negative (Negative) 06/16/25 Urine Nitrite Negative (Negative) 06/16/25 Urine Bilirubin Negative (Negative) 06/16/25 Urine Urobilinogen Negative (Negative) 06/16/25 Urine Leukocyte Esterase Negative (Negative) 06/16/25 Blood Type O Positive 06/16/25 Antibody Screen NEGATIVE 06/16/25 Testing Electrocardiogram Date: 06/16/25 NSR with sinus arrhythmia at 81bpm. "Normal ECG" Chest X-Ray Date: 06/16/25 IMPRESSION: No acute pleuropulmonary pathology seen.
--- NOTE | 2025-06-16 14:45 | PAT Medication Instructions ---
Medication Instructions Date of Service June 16, 2025 Home Medications aluminum chloride 20 % topical solution (Drysol) 1 applic topical UD PRN excessive under arm sweating rijkezf-hcqjxvdccwxbp-gkgkfkim 250 mg-250 mg-65 mg tablet (Excedrin Migraine) 3 tab PO UD PRN Migraine Headache esomeprazole magnesium 40 mg capsule,delayed release 40 mg PO HS multivitamin 1 cap PO QAM sildenafil 25 mg tablet (Viagra) 50 mg PO UD PRN Sexual Activity terazosin 1 mg capsule 1 mg PO HS turmeric 400 mg capsule 500 mg PO QAM zolpidem 10 mg tablet 10 mg PO HS PRN Sleep atogepant 60 mg tablet (Qulipta) 60 mg PO QAM gabapentin 300 mg capsule 300 mg PO QID glucosamine sulfate 750 mg tablet 1,500 mg PO QAM hydrocodone 7.5 mg-acetaminophen 325 mg tablet 1 tab PO UD PRN migraines lactobacillus combination no.4 3 billion cell capsule (Probiotic) 0 mmu cells PO QAM ubrogepant 100 mg tablet (Ubrelvy) 100 mg PO BID PRN migraines fenofibrate 145 mg PO QAM lisinopril 20 mg-hydrochlorothiazide 25 mg tablet 1 tab PO DAILY tizanidine 4 mg tablet 4 mg PO BID ASK your surgeon for instructions hojgsnf-iqpyviipgomgk-rzqrojao 250 mg-250 mg-65 mg tablet (Excedrin Migraine) 3 tab PO UD PRN Migraine Headache ASK your prescriber and surgeon atogepant 60 mg tablet (Qulipta) 60 mg PO QAM ubrogepant 100 mg tablet (Ubrelvy) 100 mg PO BID PRN migraines STOP taking 2 weeks before surgery (or as soon as possible if surgery is within 2 weeks) turmeric 400 mg capsule 500 mg PO QAM glucosamine sulfate 750 mg tablet 1,500 mg PO QAM STOP taking 24 hours before surgery aluminum chloride 20 % topical solution (Drysol) 1 applic topical UD PRN excessive under arm sweating sildenafil 25 mg tablet (Viagra) 50 mg PO UD PRN Sexual Activity fenofibrate 145 mg PO QAM DO NOT take the morning of surgery multivitamin 1 cap PO QAM lactobacillus combination no.4 3 billion cell capsule (Probiotic) 0 mmu cells PO QAM lisinopril 20 mg-hydrochlorothiazide 25 mg tablet 1 tab PO DAILY Take morning of surgery With a small sip of water, OTHERWISE NOTHING TO EAT OR DRINK AFTER MIDNIGHT: gabapentin 300 mg capsule 300 mg PO QID hydrocodone 7.5 mg-acetaminophen 325 mg tablet 1 tab PO UD PRN migraines (if needed) tizanidine 4 mg tablet 4 mg PO BID Take evening before surgery esomeprazole magnesium 40 mg capsule,delayed release 40 mg PO HS terazosin 1 mg capsule 1 mg PO HS zolpidem 10 mg tablet 10 mg PO HS PRN Sleep (if needed) gabapentin 300 mg capsule 300 mg PO QID hydrocodone 7.5 mg-acetaminophen 325 mg tablet 1 tab PO UD PRN migraines (if needed) tizanidine 4 mg tablet 4 mg PO BID Other Notes If you have any questions please call us at [phone] or [phone] or [phone] or [phone]
--- NOTE | 2025-06-16 15:31 | History & Physical Report ---
Date of Service June 16, 2025 Assessment & Plan (1) Osteoarthritis of right knee: Plan: PRE-OP Diagnosis: Right knee degenerative joint disease Planned Procedure: Right total knee arthroplasty Plan: Patient is scheduled to undergo this procedure at the [facility] with Dr. Menendez on July 09, 2025. Risks and complications of the procedure such as: Infection, bleeding, pain, scarring, nerve blood vessel damage, weakness, wound problems, stiffness, incomplete relief of symptoms, hardware failure, hardware loosening, wear, fracture, tendon or ligament injury, blood clots, embolism, cardiac, stroke and were explained to the patient at his visit today and informed consent for the procedure was obtained. We will need to obtain preoperative medical clearance from the patient's primary care provider patient is scheduled to meet with anesthesia at the hospital later today. While there he will obtain a CBC with differential, complete metabolic panel, PT/INR, PTT, blood type and screen, urinalysis, chest x-ray and EKG. During today's visit we reviewed the total knee packet. I provided the patient with paperwork to obtain obtaining a handicap placard for his vehicle. I provided him with information about lectures offered by [facility] in regards to joint replacement surgery. I provided him with an order to obtain a walker. I recommended that he purchase a shower chair and raised toilet seat. We discussed discharge planning from the hospital. Patient states he will most likely do in-home physical therapy for the first 2 weeks before transitioning to outpatient physical therapy. I advised the patient that he will be provided with a prescription for narcotic pain medication for postoperative pain control. We will have him on Eliquis twice daily for the first 30 days postoperatively for blood clot prevention. Patient be scheduled for 2-week postoperative follow-up visit with Francesco on July 24. This chart was completed utilizing [employer] voice recognition software. Grammatical errors, random word insertions, pronoun errors, and in complete sentences are an occasional consequence of the system. Any questions or concerns about the content, text, or information contained within the body of this dictation should be addressed directly to the physician for clarification. History of Present Illness Chief Complaint: Chief Complaint: Right knee pain Primary Care Provider: Edilia Pineda MD History of Present Illness (including history relevant to procedure): This 55-year-old male presents to clinic today for his preoperative history and physical. Patient complains of a longstanding history of of right knee pain. He states that he has left knee replaced about 3 years ago and has had great results. States his last series of viscosupplementation was in February and has provided him with no relief. Due to failed conservative management with the use of oral nonsteroidal agents, corticosteroid injections and viscosupplementation injections, patient is electing to proceed with surgical intervention. Review Of Systems: A 12 point review of systems is performed and is unremarkable except for those things stated in the HPI and past medical history. Past Medical History: Problems: Primary osteoarthritis of right knee Status post total left knee replacement Knee osteoarthritis Biceps rupture, distal Right elbow pain Right arm pain Migraine Acid reflux Hypercholesteremia Sleep apnea BPH Procedure History Procedure Procedure Date Comments Knee arthroscopy History of colonoscopy History of shoulder surgery left x3, right x2 History of shoulder surgery Right for torn bicep tendon History of total left knee replacement Hx of foot surgery left foot Status post gamma knife treatment For cavernous malformation [facility] (2015) - bilateral Allergies and Sensitivities: morphine Current Home Meds: (Last Updated 06/16 08:36) amoxicillin (amoxicillin 500 mg oral capsule) 2,000 mg PO As indicated one hour before dental and other procedures as directed atogepant (Qulipta 60 mg oral tablet) TAKE ONE TABLET BY MOUTH EVERY DAY atogepant (Qulipta 60 mg oral tablet) 60 mg PO Daily esomeprazole (esomeprazole 40 mg oral delayed release capsule) TAKE ONE CA PSULE BY MOUTH EVERY DAY fenofibrate (fenofibrate 145 mg oral tablet) 145 mg PO Daily fenofibrate (fenofibrate 145 mg oral tablet) 145 mg PO Daily gabapentin (gabapentin 300 mg oral capsule) TAKE TWO CAPSULES BY MOUTH TWICE DAILY glucosamine lisinopril 20 mg PO Daily with HCTZ meloxicam (meloxicam 15 mg oral tablet) TAKE ONE TABLET BY MOUTH IN THE MORNING FOR PAIN sildenafil (sildenafil 50 mg oral tablet) TAKE ONE TABLET BY MOUTH EVERY DAY NEEDED sodium hyaluronate (Euflexxa 10 mg/mL intra-articular solution) 20 mg intra- articular q7days 3 syringes for R knee. Please ship to physician's office: [address] [place] [address], [place] [address] terazosin (terazosin 1 mg oral capsule) TAKE ONE CAPSULE BY MOUTH EVERY DAY AT BEDTIME tiZANidine (tiZANidine 4 mg oral tablet) TAKE ONE TABLET BY MOUTH EVERY DAY AT BEDTIME FOR 7 DAYS, THEN INCREASE BY A HALF TABLET WEEKLY UNTIL YOU REACH 8MG AT BEDTIME tiZANidine 4 mg PO bid turmeric ubrogepant (Ubrelvy 100 mg oral tablet) 100 mg PO Daily ubrogepant (Ubrelvy 50 mg oral tablet) Take 1 tablet at onset of migraine and may repeat in 2 hours if needed. Do not exceed 2 tablets in 24 hours. May cause drowsiness zolpidem (zolpidem 10 mg oral tablet) TAKE ONE TABLET BY MOUTH AT BEDTIME NEEDED FOR SLEEP No Vital Signs Data Available Initial Wt: No Data Available Allergies Allergy/AdvReac Type Severity Reaction Status Date / Time morphine AdvReac Unknown N/V Verified 06/12/25 12:01 Home Medications Medication Instructions Recorded Confirmed Type aluminum chloride 20 % topical 1 applic topical UD PRN excessive 03/28/22 06/12/25 History solution (Drysol) under arm sweating adhbzua-kxpinoxjjxhos-vvqavrhn 250 3 tab PO UD PRN Migraine Headache 03/28/22 06/12/25 History mg-250 mg-65 mg tablet (Excedrin Migraine) esomeprazole magnesium 40 mg 40 mg PO HS 03/28/22 06/12/25 History capsule,delayed release multivitamin 1 cap PO QAM 03/28/22 06/12/25 History sildenafil 25 mg tablet (Viagra) 50 mg PO UD PRN Sexual Activity 03/28/22 06/12/25 History terazosin 1 mg capsule 1 mg PO HS 03/28/22 06/12/25 History turmeric 400 mg capsule 500 mg PO QAM 03/28/22 06/12/25 History zolpidem 10 mg tablet 10 mg PO HS PRN Sleep 03/28/22 06/12/25 History atogepant 60 mg tablet (Qulipta) 60 mg PO QAM 06/12/25 06/16/25 History gabapentin 300 mg capsule 300 mg PO QID 06/12/25 06/12/25 History glucosamine sulfate 750 mg tablet 1,500 mg PO QAM 06/12/25 06/12/25 History hydrocodone 7.5 mg-acetaminophen 1 tab PO UD PRN migraines 06/12/25 06/12/25 History 325 mg tablet lactobacillus combination no.4 3 0 mmu cells PO QAM 06/12/25 06/12/25 History billion cell capsule (Probiotic) ubrogepant 100 mg tablet (Ubrelvy) 100 mg PO BID PRN migraines 06/12/25 06/12/25 History fenofibrate 145 mg PO QAM 06/16/25 06/16/25 History lisinopril 20 1 tab PO DAILY 06/16/25 06/16/25 History mg-hydrochlorothiazide 25 mg tablet tizanidine 4 mg tablet 4 mg PO BID 06/16/25 06/16/25 History Past Med/Surg History Problem List (Updated 06/16/25 @ 15:30 by Phil Goetz PA-C) Osteoarthritis of right knee S/P total knee replacement using cement Left knee DJD Encounter for pre-operative examination Medical History Cavernous malformation Hx, s/p gamma knife treatment (2015) Hx of gastroesophageal reflux (GERD) Hx of hyperlipidemia History of hypertension BPH (benign prostatic hyperplasia) Obesity History of COVID-19 03/2021 Excessive sweating Armpit region Migraines Chronic (typically 6 days/week) Surgical History Status post gamma knife treatment For cavernous malformation [facility] (2015) Hx of foot surgery left foot History of total left knee replacement History of colonoscopy History of arthroscopy of right knee History of arthroscopy of left knee History of shoulder surgery Right for torn bicep tendon History of shoulder surgery left x3, right x2 Family History Other Heart disease Stroke Social History Smoking Status: Never smoker Second Hand Exposure: No; Do You Dip or Chew Tobacco: No (Quit 7 years ago (hx intermittent use x 5 years)); Hx Alcohol Use: Yes Alcohol type: beer, wine and hard liquor Hx Substance Use: No Preferred Language: Kinyarwanda Communication Ability: Effective Hearing Ability: Normal Tower Air Traffic Control Specialist Required: No Beliefs That Will Affect Care: None marital status: Single Current Living Situation: Spouse current occupational status: employed Feels Safe at Home: Yes Assistive Devices: Glasses Review of Systems All systems reviewed & are unremarkable except as noted in Subjective Physical Exam Physical Exam: Physical Exam: (relevant to the procedure, including heart and lung evaluation) General: Alert and oriented x 3 with proper grooming and hygiene Eyes: Pupils are equal and reactive to light with accommodation. Extraocular movements are intact Throat: Posterior oropharynx clear with absence of edema, erythema or exudate. Dentition appropriate Cardiac: Regular rate and rhythm with no murmurs or gallops appreciated Lungs: Clear to auscultation throughout with no wheezing, rales or rhonchi Abdomen: Obese, nondistended, nontender with normal active bowel sounds Extremities: Right knee; knee range of motion is from 0 degrees of extension to 115 degrees of flexion. Patient has visible varus malalignment. He experiences some slight medial joint line tenderness when the knee is palpated in the flexed position. I was able to slightly manipulate his patella palpable crepitation. He had no laxity with varus or valgus stressing. AP drawer sign and Anthony test are negative. Patient was neurovascularly intact in the right lower extremity. Neuro: Cranial nerves II through XII are intact no motor or sensory deficit Skin: Normal appearance no open skin areas or discharge Results & Data Diagnostic Findings Studies (relevant to the procedure): 4 views of the right knee taken today and stored in [employer] system which shows advanced tricompartmental osteoarthritis of the right knee and varus alignment
--- NOTE | 2025-07-09 05:22 | History & Physical Bridge Note ---
Date of Service July 09, 2025 History & Physical Bridge Note I have examined the patient, reviewed the History & Physical and in the interval since the performance of the History & Physical I have noted the following changes of clinical significance:consent and site verified. reviewed risks especially stiffness,infection,DVT/PE. no changes noted
[2025-07-09] MEDS ORDERED: ROPIVACAINE 0.5% 5 MG/ML 30 ML VIAL ONE (06:37)
[2025-07-09] MEDS ORDERED: BUPIVACAINE 0.5 % 5 MG/1 ML PF 10ML VIAL ONE (06:37)
[2025-07-09] MEDS: LR 60ML/HR IV SCH (07:34)
[2025-07-09] MEDS: LR 500ML BOLUS, THEN 15ML/HR IV SCH (07:34)
[2025-07-09] MEDS ORDERED: LIDOCAINE 2% 2 ML VIAL/AMP(20MG/ML) INFIL ONE (07:41)
[2025-07-09] MEDS ORDERED: PROPOFOL IV EMULSION 10 MG/ML 20 ML VIAL IV ONE ×2 (07:41→10:51)
[2025-07-09] MEDS ORDERED: PROPOFOL IV EMULSION 10 MG/ML 100 ML VIAL IV ONE (07:41)
[2025-07-09] MEDS ORDERED: MIDAZOLAM HCL 1 MG/ML 2ML VIAL ONE ×2 (07:42→08:12)
[2025-07-09] MEDS: TRANEXAMIC ACID 1,000 MG **IV Pre-op IV SCH (09:13)
[2025-07-09] MEDS ORDERED: KETAMINE HCL 10MG/ML SYR ONE ×2 (09:44→10:29)
[2025-07-09] MEDS ORDERED: LABETALOL HCL IV 5 MG/ML 20ML IV ONE (09:44)
[2025-07-09] MEDS: ORTHO JOINT ANESTHETIC ONE (10:01)
[2025-07-09] MEDS: ROPIVACAINE 0.5% HCL/PF 246 MG, Ketorolac (*for OR use only*) 30 MG, EPINEPHrine 30MG/3... INFIL SCH (10:50)
--- NOTE | 2025-07-09 11:08 | Post Operative Brief Note ---
Immediate Post Op Note Date of Surgery July 09, 2025 Pre & Post Diagnosis Operation Date: 07/09/25 08:50 Pre-Op Diagnosis: Right Knee Degenerative Joint Disease Post-Op Diagnosis: Right Knee Degenerative Joint Disease I identified the patient and participated in the time-out.: Yes Procedure Operation Date: 07/09/25 08:50 Actual Procedures p Right Total Knee Arthroplasty(Right) - Nikita Menendez MD Surgeon Nikita Menendez MD Legal Writing Professor [facility] no resident fill available Estimated Blood Loss 50 Findings Consistent with Post-Op Diagnosis Osteoarthritis medial compartment grade 4 tibia and femur grade 4 patellofemoral joint flexion contracture 10 degrees Fluids 1400 cc Complications None
--- NOTE | 2025-07-09 11:12 | Operative Report ---
Post Operative Report Pre & Post Diagnosis Operation Date: 07/09/25 08:50 Pre-Op Diagnosis: Right Knee Degenerative Joint Disease Post-Op Diagnosis: Right Knee Degenerative Joint Disease I identified the patient and participated in the time-out.: Yes Procedure Operation Date: 07/09/25 08:50 Actual Procedures p Right Total Knee Arthroplasty(Right) - Nikita Menendez MD Surgeon Nikita Menendez MD Aircraft Metalsmith Francisco Javier no resident or fellow available Estimated Blood Loss 50 Findings Consistent with Post-Op Diagnosis Severe medial disease grade 4 tibia and femur 10 degree flexion contracture grad e 4 patellofemoral joint Fluids 1400 cc Specimens Bone pathology Complications None Indications Severe pain progressive x-rays failed conservative management for years Description of Procedure After the patient was appropriate endophyte site verified consent verified antibiotics from the been given the right lower extremity was prepped and draped in his routine fashion. Tourniquet plated to 275 mmHg after exsanguination of the limb with a rubber bandage. Total tourniquet time was 60 minutes. Midline exposure utilized parapatellar arthrotomy performed. Extensive synovectomy was performed secondary to diffuse hypertrophic synovial thickening. Osteophytes resected. Distal femur entered. Cruciates resected tibia subluxated menisci resected. Distal femur resected 11 mm proximal tibia 4 mm extension gap checked it was a little bit tight additional 2 mm taken off the tibia was excellent. Tibia was sized to a 7 femur to a 6. Femur was then cut to a size 6 flexion gap checked it was excellent the box cut made a size 6 fit well lug holes made. Tibia broached reamed to a size 7 with a 6 mm spacer was excellent good midrange stability good 90 degree posterior drawer stability. The patella tracked well. The patella was resected required additional resection and getting into about 14 mm and the 38 button was seated after drill holes made. It tracked well. Ortho mix was then injected all about the knee all trial elements were removed the knee was soaked in Betadine for 3 minutes then irrigated and then the permanent cemented into position. Tibia femur patella in that order. At 12 minutes the tourniquet was deflated minor bleeding points controlled electrocautery at 14 minutes the knee was flexed the trial spacer removed the knee finally irrigated and permanent liner seated the knee reduced no cement was required to be removed. He was in close to 40 degrees of flexion with #2 Vicryl 2-0 Vicryl and stainless to clips appropriate bulky dressing applied the patient transferred recovery in satisfactory descending tolerated the procedure well. EBL was 50 cc or less. Crystalloid was 1400 cc. DVT PE prophylaxis to start tomorrow. Family contacted. I attest to the content of the Intraoperative Record and any orders documented therein. Any exceptions are noted below.
--- NOTE | 2025-07-09 11:13 | Orthopedic Progress Note ---
Date of Service July 09, 2025 Orthopedic Progress Note Underwent right total knee replacement cemented. Tolerated well. Denies chest pain shortness of breath fever chills nausea longer headache. Vital signs are stable he is afebrile. Neurovascular check femoral sciatic nerve limited by spinal. Wound dressing clean dry and intact. Final x-ray pending. Family contacted.
--- NOTE | 2025-07-09 11:14 | Discharge Summary ---
Date of Service July 10, 2025 Admission HPI Per Admitting Provider History of Present Illness (including history relevant to procedure): This 55-year-old male presents to clinic today for his preoperative history and physical. Patient complains of a longstanding history of of right knee pain. He states that he has left knee replaced about 3 years ago and has had great results. States his last series of viscosupplementation was in February and has provided him with no relief. Due to failed conservative management with the use of oral nonsteroidal agents, corticosteroid injections and viscosupplementation injections, patient is electing to proceed with surgical intervention. Review Of Systems: A 12 point review of systems is performed and is unremarkable except for those things stated in the HPI and past medical history. Past Medical History: Problems: Primary osteoarthritis of right knee Status post total left knee replacement Knee osteoarthritis Biceps rupture, distal Right elbow pain Right arm pain Migraine Acid reflux Hypercholesteremia Sleep apnea BPH Procedure History Procedure Procedure Date Comments Knee arthroscopy History of colonoscopy History of shoulder surgery left x3, right x2 History of shoulder surgery Right for torn bicep tendon History of total left knee replacement Hx of foot surgery left foot Status post gamma knife treatment For cavernous malformation [facility] (2016) - bilateral Allergies and Sensitivities: morphine Current Home Meds: (Last Updated 06/16 08:36) amoxicillin (amoxicillin 500 mg oral capsule) 2,000 mg PO As indicated one hour before dental and other procedures as directed atogepant (Qulipta 60 mg oral tablet) TAKE ONE TABLET BY MOUTH EVERY DAY atogepant (Qulipta 60 mg oral tablet) 60 mg PO Daily esomeprazole (esomeprazole 40 mg oral delayed release capsule) TAKE ONE CA PSULE BY MOUTH EVERY DAY fenofibrate (fenofibrate 145 mg oral tablet) 145 mg PO Daily fenofibrate (fenofibrate 145 mg oral tablet) 145 mg PO Daily gabapentin (gabapentin 300 mg oral capsule) TAKE TWO CAPSULES BY MOUTH TWICE DAILY glucosamine lisinopril 20 mg PO Daily with HCTZ meloxicam (meloxicam 15 mg oral tablet) TAKE ONE TABLET BY MOUTH IN THE MORNING FOR PAIN sildenafil (sildenafil 50 mg oral tablet) TAKE ONE TABLET BY MOUTH EVERY DAY NEEDED sodium hyaluronate (Euflexxa 10 mg/mL intra-articular solution) 20 mg intra- articular q7days 3 syringes for R knee. Please ship to physician's office: [address] [place] [address] terazosin (terazosin 1 mg oral capsule) TAKE ONE CAPSULE BY MOUTH EVERY DAY AT BEDTIME tiZANidine (tiZANidine 4 mg oral tablet) TAKE ONE TABLET BY MOUTH EVERY DAY AT BEDTIME FOR 7 DAYS, THEN INCREASE BY A HALF TABLET WEEKLY UNTIL YOU REACH 8MG AT BEDTIME tiZANidine 4 mg PO bid turmeric ubrogepant (Ubrelvy 100 mg oral tablet) 100 mg PO Daily ubrogepant (Ubrelvy 50 mg oral tablet) Take 1 tablet at onset of migraine and may repeat in 2 hours if needed. Do not exceed 2 tablets in 24 hours. May cause drowsiness zolpidem (zolpidem 10 mg oral tablet) TAKE ONE TABLET BY MOUTH AT BEDTIME NEEDED FOR SLEEP No Vital Signs Data Available Initial Wt: No Data Available Principal Diagnosis Osteoarthritis right knee status post right cemented total knee replacement Discharge Data Allergies Allergy/AdvReac Type Severity Reaction Status Date / Time morphine AdvReac Unknown N/V Verified 07/09/25 07:01 Vaccinations None Consultations None Procedures Performed Operation Date: 07/09/25 08:50 Actual Procedures p Right Total Knee Arthroplasty(Right) - Nikita Menendez MD Ordered Studies 07/09/25 05:00 US - OR guided needle placemen Routine Hospital Course (1) Status post left knee replacement: Total Time Total Time Spent Total Time Spent (In Minutes): 5 Discharge Plan Discharge Items Reason For Visit: Right Knee Degenerative Joint Disease Follow-up/Referrals: Edilia Pineda MD [Outside Practitioners] - Stand-Alone Forms: My [facility] Medications and DC Order Prescriptions: No Action Drysol 20 % Solution 1 applic TOPICAL UD PRN (Reason: excessive under arm sweating) terazosin 1 mg Capsule 1 mg PO HS esomeprazole magnesium [Nexium] 40 mg Capsule,Delayed Release(Dr/Ec) 40 mg PO HS sildenafil [Viagra] 25 mg Tablet 50 mg PO UD PRN (Reason: Sexual Activity) zolpidem [Ambien] 10 mg Tablet 10 mg PO HS PRN (Reason: Sleep) Patient Comments: rare/infrequent use per pt multivitamin Capsule 1 cap PO QAM turmeric 400 mg Capsule 500 mg PO QAM hjbhejv-pafvthxbskaul-nzwuopnc [Excedrin Migraine] 250-250-65 mg Tablet 3 tab PO UD PRN (Reason: Migraine Headache) hydrocodone-acetaminophen 7.5-325 mg tablet 1 tab PO UD PRN (Reason: migraines) gabapentin 300 mg capsule 300 mg PO QID glucosamine sulfate [Glucosamine] 750 mg Tablet 1,500 mg PO QAM Rx Instructions: administer with a meal Probiotic 3 billion cell Capsule 0 mmu cells PO QAM Patient Comments: pt unsure of dose Rx Instructions: administer with a meal Ubrelvy 100 mg Tablet 100 mg PO BID PRN (Reason: migraines) Qulipta 60 mg Tablet 60 mg PO QAM Patient Comments: pt unsure of dose tizanidine [Zanaflex] 4 mg Tablet 4 mg PO BID lisinopril-hydrochlorothiazide 20-25 mg Tablet 1 tab PO DAILY fenofibrate 145 mg PO QAM celecoxib [Celebrex] 200 mg Capsule 200 mg PO DAILY diphenhydramine HCl [ZzzQuil] 25 mg Capsule 25 mg PO HS PRN (Reason: Sleep) melatonin 5 mg Tablet 5 mg PO HS PRN (Reason: Pain) Admission Data Admit Date/Time: 07/09/25 11:36 Attending Provider: Nikita Menendez Admit Provider: Nikita Menendez Primary Care Provider: Katharina Nicholas Other Providers: [facility]
--- NOTE | 2025-07-09 11:30 | Operative Report ---
Post Operative Report Pre & Post Diagnosis Operation Date: 07/09/25 08:50 Pre-Op Diagnosis: Right Knee Degenerative Joint Disease Post-Op Diagnosis: Right Knee Degenerative Joint Disease I identified the patient and participated in the time-out.: Yes Procedure Operation Date: 07/09/25 08:50 Actual Procedures p Right Total Knee Arthroplasty(Right) - Nikita Menendez MD Surgeon SUE Menendez MD Combustion Engineer [facility] PAC no resident or fellow available Estimated Blood Loss 50 Findings Consistent with Post-Op Diagnosis see operative report Specimens see operative report Drains none Complications none Disposition Accompanied Patient To Recovery: Yes Indications This 55 year old male presented to the office with complaints of persisting right knee pain. He had tried conservative care measures including injection therapy, without improvement. He elected to proceed with surgical invention after being educated about potential risks and outcomes. Preoperative imaging was obtained. Description of Procedure The patient was administered a spinal anesthetic and then taken to the operating room where he was given sedation. He was prepped and draped in the usual sterile fashion. Please see Dr. Menendez's operative report for specifics of the procedure. I was present for the entire case from initial patient positioning through final wound closure. Assistance was provided in tissue retraction, hemostasis, trial implant placement, final implant placement, and final wound closure. The patient was taken to the recovery room in satisfactory condition. I attest to the content of the Intraoperative Record and any orders documented therein. Any exceptions are noted below.
--- NOTE | 2025-07-09 11:46 | XRay Report ---
XR knee RT 1 or 2V routine HISTORY: 55 years-old Male S/P R TKA right knee arthroplasty COMPARISON: 06/16/2025 TECHNIQUE: 2 views of the right knee FINDINGS: Total joint arthroplasty with patellar resurfacing. Anterior midline skin ephraim with expected posto perative soft tissue swelling and deep tissue air. No acute fracture or unexpected opaque foreign bod y. IMPRESSION: Total joint arthroplasty with expected postoperative findings. ACT 112: Negative or not required by law. The above report was generated using voice recognition software. It may contain grammatical, syntax o r spelling errors. Electronically signed by: Can Russell M.D. 07/09/2025 11:45 AM
--- NOTE | 2025-07-09 13:02 | Anesthesiology Progress Note ---
Date of Service July 09, 2025 Anesthesia Post Procedure Vital Signs Vital Signs: Temp Pulse Pulse Resp BP BP Pulse Ox 07/09/25 12:45 36.3 C L 69 19 122/80 99 07/09/25 12:35 63 15 120/77 96 07/09/25 12:25 66 22 129/80 98 07/09/25 12:15 63 16 119/77 97 07/09/25 12:05 62 12 118/80 97 07/09/25 11:55 63 11 L 112/69 94 07/09/25 11:45 73 14 118/75 94 07/09/25 11:35 67 13 113/78 94 07/09/25 11:25 68 14 114/68 99 07/09/25 11:18 36.2 C L 79 12 115/68 99 07/09/25 06:59 36.5 C 75 18 128/88 95 O2 Del Method O2 Flow Rate 07/09/25 12:45 Room Air 07/09/25 12:35 Room Air 07/09/25 12:25 Room Air 07/09/25 12:15 Room Air 07/09/25 12:05 Room Air 07/09/25 11:55 Room Air 07/09/25 11:45 Room Air 07/09/25 11:35 Room Air 07/09/25 11:25 Oxymask 2 07/09/25 11:18 Oxymask 2 07/09/25 06:59 Room Air Transfer of Care Handoff Completed per policy Notes Mental Status: alert / awake / arousable Patient Amnestic to Procedure: Yes Nausea / Vomiting: adequately controlled Pain: adequately controlled Airway Patency, RR, SpO2: stable & adequate BP & HR: stable & adequate Hydration State: stable & adequate Anesthetic Complications: no major complications apparent and Pt Satisfied with anesthetic care
[2025-07-09] MEDS ORDERED: ONDANSETRON INJ 2 MG/ML 2 ML VIAL IV PRN (13:27)
[2025-07-09] MEDS ORDERED: TAMSULOSIN HCL 0.4 MG CAP PO PRN (13:27)
[2025-07-09] MEDS ORDERED: VANCOMYCIN CONSULT ACTIVE PRN (13:27)
[2025-07-09] MEDS ORDERED: MAGNESIUM HYDROXIDE SUSP 30 ML UDC PO PRN (13:27)
[2025-07-09] MEDS ORDERED: diphenhydrAMINE 50 MG/ML VIAL IV PRN (13:27)
[2025-07-09] MEDS ORDERED: METOCLOPRAMIDE HCL INJ 5 MG/ML 2 ML VIAL IV PRN (13:27)
[2025-07-09] MEDS ORDERED: ALUMINUM/MAGNESIUM SUSP 30 ML UDC PO PRN (13:27)
[2025-07-09] MEDS ORDERED: NALOXONE HCL 0.4 MG/1 ML VIAL/CARP IV PRN (13:27)
--- NOTE | 2025-07-09 13:33 | Orthopedic Progress Note ---
Date of Service July 09, 2025 Assessment & Plan Admission and Anticipated Discharge Date Admission Date: July 09, 2025 Orthopedic Progress Note Postop check. Resting comfortably in bed. Denies nausea vomiting chest pain shortness of breath fever chills. Block is starting to wear off getting a little bit of movement in his foot. Wound dressing clean dry and intact. Postop x-rays look excellent. Assessment doing well reemphasized the exercises. Showed him the sheet. Advised him concerning ice at home. Advised him concerning using the knee immobilizer for the first 3 days just with ambulation does not need to be on and better when he is seated in a chair. Just to protect him from some hyperflexion of his knee as he is walking in case his quad is not quite ready yet. He states he understands this was done in the presence of his . He is eating and drinking well will saline lock his IV. Continue to use IV for medications. She had anticoagulation tomorrow.
[2025-07-09] MEDS: SODIUM CHLORIDE 0.9% 1,000 ML IV SCH (14:14)
[2025-07-09] MEDS: VANCOMYCIN HCL 1,750 MG in SODIUM CHLORIDE 0.9% 500 ML IV ONE (15:09)
[2025-07-09] MEDS: GABAPENTIN 300 MG CAP PO SCH (15:09)
[2025-07-09] MEDS: ACETAMINOPHEN 500 MG TAB PO SCH (15:09)
[2025-07-09] MEDS: KETOROLAC 30 MG/ML VIAL IV SCH (15:09)
[2025-07-09] MEDS: ASCORBIC ACID 500 MG TAB PO SCH (17:26)
[2025-07-09] MEDS: FERROUS GLUCONATE 324 MG TAB PO SCH (17:26)
[2025-07-09] MEDS: HYDROmorphone INJ 0.5 MG/0.5 ML SYR IV PRN (17:26)
[2025-07-09] MEDS: TERAZOSIN HCL 1 MG CAP PO SCH (20:06)
[2025-07-09] MEDS: DOCUSATE SODIUM 100 MG CAP PO SCH (20:06)
[2025-07-09] MEDS: SENNA 8.6 MG TAB PO SCH (20:07)
--- NOTE | 2025-07-10 06:59 | Orthopedic Progress Note ---
Date of Service July 10, 2025 Assessment & Plan Admission and Anticipated Discharge Date Admission Date: July 09, 2025 Orthopedic Progress Note Postop day #1 status post right total knee replacement. Patient in usual state of good health. Denies chest pain shortness of breath fever chills nausea vomiting or headache. Vital signs are stable he is afebrile. Neurovascular check femoral sciatic nerve is good. He can do ankle pumps can do a straight leg raise. Wound dressing clean dry and intact. A.m. labs are pending. Assessment doing well continue care pathway discharge to home today after PT OT initiate anticoagulation. Dressing change to be performed by PA later this morning prior to discharge. Follow-up in 2 weeks. Doing outpatient PT at [facility] initial first 2 weeks Home PT nursing visit. Emphasized exercises. He states he understands.
[2025-07-10 07:34] VITALS: BP 143/92; PULSE 82; RESP 18; TEMP 97.7; O2SAT 95
[2025-07-10 07:38] LABS: Hematocrit (blood only) 36.6 % (42.0-52.0); Hemoglobin 12.4 g/dl (14.0-18.0); Mean Corpuscular Hemoglobin 30.2 pg (25.0-34.0); Mean Corpuscular Volume 89.3 fL (80.0-100.0); Platelet Count 201 K/uL (130-400); RDW Standard Deviation 40.1 fL (36.4-46.3); Red Blood Count 4.10 M/uL (4.70-6.10); White Blood Count 7.78 K/ul (4.8-10.8)
[2025-07-10] MEDS: LISINOPRIL/HCTZ 20/25MG 1 TAB PO SCH (07:41)
[2025-07-10] MEDS: dexAMETHasone 10 MG in SYRINGE 0 ML IV SCH (07:42)
[2025-07-10] MEDS: FENOFIBRATE NANOCRYSTALLIZED 145 MG TABLET PO SCH (07:43)
[2025-07-10] MEDS: MULTIVITAMIN TAB PO SCH (07:43)
[2025-07-10] MEDS: APIXABAN 2.5 MG TAB PO SCH (07:44)
[2025-07-10 08:00] LABS: Anion Gap 4.0 (3-11); Blood Urea Nitrogen 19.0 mg/dl (6-23); Calcium 9.4 mg/dl (8.6-10.3); Carbon Dioxide 30.0 mmol/L (21-32); Chloride 105.0 mmol/L (98-107); Creatinine Clr Calc Pharmacy 83.0 ml/min; Glucose 110.0 mg/dl (70-99(Fasting)); Potassium 4.0 mmol/L (3.5-5.1); Sodium 139.0 mmol/L (136-145)
--- NOTE | 2025-07-10 09:13 | Orthopedic Progress Note ---
Date of Service July 10, 2025 Assessment & Plan (1) S/P total knee replacement using cement: Plan: The patient's dressing was changed this morning by me. Nain stocking was applied. He will leave this on through the weekend. It can be changed on Monday if needed for soiling. Weight-bear as tolerated using his walker. He will use the knee immobilizer today and tomorrow when out of bed. It can be discontinued entirely on Monday morning. Prescription for Eliquis 2.5 mg twice daily and Percocet 5/325 mg was sent to his [facility] pharmacy. He has home health scheduled for the next 2 weeks. He already has PT scheduled after that at [facility] in [place]. Follow-up in the office on July 24 as scheduled with me for staple removal. Discharge to home after PT and OT this morning. Written discharge instructions were provided. Admission and Anticipated Discharge Date Admission Date: July 09, 2025 Subjective This 55-year-old male is seen today in his room. He is 1 day status post right total knee arthroplasty. He states he only slept about an hour last night. He denies any chest pain, shortness of breath, nausea, vomiting, or abdominal pain. He has some minor leg discomfort at this point. He is waiting for physical therapy and has finished his breakfast. Looking forward to going home today. No additional complaints. Review of Systems Review of Systems: Unchanged from yesterday. Physical Exam Physical Exam: General: Well-developed, well-nourished, middle-aged male, in no acute distress. Sitting in bed. Alert and oriented. Skin: Warm and dry with good turgor. No rashes. No ecchymosis or erythema. Postsurgical dressings are in place. Upon removal, there is scant dried blood on his most inner dressings. No active bleeding. Surgical ephraim are in place. Wound edges are well-approximated. No erythema, warmth, or discoloration. Minimal edema at this point. Musculoskeletal: The patient has intact motor function of his right leg. He is able to perform a straight leg raise. He has full terminal extension. Flexion to around 45 degrees without difficulty. Intact motor function of the ankle and toes. Neurologic: Gross sensation is intact across the right leg by soft touch. Peripheral pulses are 2+. Results & Data Vital Signs (Past 12 Hours) Vital Signs Temp Pulse Resp BP Pulse Ox O2 Del Method 07/10/25 07:32 36.5 C 82 18 143/92 H 95 Room Air 07/10/25 04:00 36.4 C L 74 16 143/79 H 97 Room Air 07/10/25 00:00 36.5 C 83 17 125/82 93 Room Air Laboratory Results CBC obtained this morning shows a white count of 7.78. H&H of 12.4 and 36.6. Platelets 201,000. Electrolytes are entirely unremarkable. BUN of 19 with creatinine 1.26. Glucose this morning is 110.
== END 2025-07-10 10:28 | disposition home health service (06) ==
LOC: 3N 06:30 → ASU 06:30